=== PATIENT | female | born 1965 | race Caucasian/White ===

== ENCOUNTER 2018-01-21 08:39 | Outpatient (CLI) | payer OTHER, BC ==
--- NOTE | 2018-01-21 12:04 | Ultrasound Report ---
Procedure Date: 01/21/2018 Accession Number: [id number] / [id number] Procedure: US - Pelvic w/Transvaginal CPT Code: FULL RESULT: EXAM: Pelvic w/Transvaginal DATE: 01/21/2018 9:57 AM CLINICAL HISTORY: [place] COMPARISON: None. TECHNIQUE: Realtime transabdominal imaging performed to identify the uterus and adnexa and as an overview of other pelvic structures, followed by transvaginal imaging for better assessment of the endometrium and/or adnexa, with static image documentation. FINDINGS: Uterus: 8.0 x 4.1 x 3.5 cm, volume 115 cc. Anteverted position. Normal overall size and echotexture. Masses: There are 2 anterior leiomyoma is, subserosally measuring 1.1 x 0.7 x 0.5 cm, and one submucosally measuring 0.7 x 0.6 x 0.5 cm. Endometrium: 7 mm. There is an echogenic 1.2 x 0.8 x 0.4 cm nodule in the endometrial canal, likely representing a polyp. Cervix: Unremarkable. Right Ovary/Adnexa: 2.8 x 2.4 x 2.0 cm, volume 7 cc. Normal echotexture. Blood flow is present. A follicle is present. Left Ovary/Adnexa: 2.2 x 2.4 x 1.7 cm, volume 5 cc. Normal echotexture. Blood flow is present. A follicle is present. Free Fluid: Small amount the cul-de-sac. Other: None. IMPRESSION: Likely endometrial polyp, measuring 1.2 cm. Small leiomyomas. RADIA
== END 2018-01-21 08:40 | disposition home or self-care (01) ==
LOC: DI 08:39
PROVIDERS: ATTEND Physician Assistant Medical
DX: N92.1 Excessive and frequent menstruation with irregular cycle (principal); D25.0 Submucous leiomyoma of uterus; D25.2 Subserosal leiomyoma of uterus
CPT/HCPCS: 76830; 76856

== ENCOUNTER 2018-02-18 03:10 | Emergency (ER) | payer OTHER, BC ==
--- NOTE | 2018-02-18 03:20 | ED Physician Documentation ---
PD HPI HEAD INJURY - Stated complaint Stated Complaint: HEAD INJURY - History obtained from History obtained from: Patient - History of Present Illness Mechanism of head injury: Blow Where head injury occurred: Home Timing - onset: Enter time (02:40), Today Pain level now: 6 Location of injury: Left Quality of pain: Pain Associated symptoms: No: LOC (uncertain if LOC, but no loss of noticeable amount of time), AMS, Amnesia, Nausea / vomiting, Neck pain Contributing factors: No: Anticoagulated, Intoxicated Similar symptoms before: Has not had sx before Recently seen: Not recently seen - Additional information Additional information: Patient is unpacking in process of moving to [facility], she put a large amount of boxed coins on a table, causing the table to overturn. There was a large, heavy framed oil painting on the table which she estimates to have weighed about 35 pounds, and the frame of the painting struck her on the left side of her head and jaw. she complains of pain in these areas. Review of Systems Eyes: reports: Reviewed and negative Ears: reports: Reviewed and negative Neurologic: reports: Headache, Head injury. denies: Generalized weakness, Focal weakness, Numbness, Altered mental status, LOC PD PAST MEDICAL HISTORY - Past Medical History Past Medical History: No - Past Surgical History Past Surgical History: No - Present Medications Home Medications: Ambulatory Orders Medication Instructions Recorded Confirmed No Known Home Medications [No 08/19/15 02/18/18 Known Home Medications] - Allergies Allergies/Adverse Reactions: Allergies Allergy/AdvReac Type Severity Reaction Status Date / Time codeine AdvReac Nausea Verified 02/18/18 03:24 Morpholine Analogues AdvReac Nausea Verified 02/18/18 03:24 - Social History Does the pt smoke?: No Smoking Status: Never smoker Does the pt drink ETOH?: Yes Does the pt have substance abuse?: No - Immunizations Immunizations are current?: Yes - POLST Patient has POLST: No PD ED PE NORMAL - Vitals Vital signs reviewed: Yes - General General: Alert and oriented X 3, No acute distress, Well developed/nourished - HEENT HEENT: PERRL, EOMI - Neck Neck: No bony TTP - Cardiac Cardiac: RRR, No murmur - Respiratory Respiratory: No respiratory distress, Clear bilaterally - Neuro Neuro: Alert and oriented X 3, technical sales director 2-12 intact, No motor deficit, No sensory deficit, Normal speech Eye Opening: Spontaneous Motor: Obeys Commands Verbal: Oriented GCS Score: 15 PD ED PE EXPANDED - HEENT HEENT Visual: 1 - swelling, tenderness 2 - abrasion, swelling, tenderness Results - Vitals Vitals: Oxygen O2 Source Room air - Rads (name of study) CT head Radiology: Prelim report reviewed, See rad report CT facial bones Radiology: Prelim report reviewed, See rad report PD MEDICAL DECISION MAKING - ED course Complexity details: reviewed results, re-evaluated patient, considered differential, d/w patient - Sepsis Event Vital Signs: Oxygen O2 Source Room air Departure - Departure Disposition: 01 Home, Self Care Clinical Impression: Head injury Qualifiers: Encounter type: initial encounter Qualified Code(s): S09.90XA - Unspecified injury of head, initial encounter Condition: Good Instructions: ED Head Injury Closed Follow-Up: Tiffany Ortiz PA-C [Primary Care Provider] - Discharge Date/Time: 02/18/18 05:05
--- NOTE | 2018-02-18 04:20 | CT Report ---
Procedure Date: 02/18/2018 Accession Number: [id number] / [id number] Procedure: CT - Facial Bones W/O CPT Code: FULL RESULT: EXAM: CT MAXILLOFACIAL WITHOUT CONTRAST EXAM DATE: 02/18/2018 03:50 AM. CLINICAL HISTORY: Head injury, nausea, left FONTANA and jaw pain. COMPARISONS: None. TECHNIQUE: Thin-section axial images were acquired of the face without contrast. Post-processing: Coronal and sagittal reformats. Other: None. In accordance with CT protocol optimization, one or more of the following dose reduction techniques were utilized for this exam: automated exposure control, adjustment of mA and/or KV based on patient size, or use of iterative reconstructive technique. FINDINGS: Soft Tissue: The infratemporal fossa and parapharyngeal spaces are unremarkable. Orbits: Symmetric and unremarkable. Bones: No fracture or bone lesion. Temporomandibular Joints: The temporomandibular joints are symmetric and normally located. Sinuses: Normal. No mucosal thickening or fluid levels. IMPRESSION: No acute facial bone fracture. RADIA
--- NOTE | 2018-02-18 04:32 | CT Report ---
Procedure Date: 02/18/2018 Accession Number: [id number] / [id number] Procedure: CT - Head W/O CPT Code: FULL RESULT: EXAM: CT HEAD EXAM DATE: 02/18/2018 03:54 AM. CLINICAL HISTORY: Head injury, left FONTANA and jaw pain. COMPARISON: None. TECHNIQUE: Multiaxial CT images were obtained from the foramen magnum to the vertex. Reformats: Coronal. IV contrast: None. In accordance with CT protocol optimization, one or more of the following dose reduction techniques were utilized for this exam: automated exposure control, adjustment of mA and/or KV based on patient size, or use of iterative reconstructive technique. FINDINGS: Parenchyma: No intraparenchymal hemorrhage. No evidence of mass, midline shift, or CT findings of infarction. Nichols-white differentiation is distinct. Extraaxial Spaces: Normal for age. No subdural or epidural collections identified. Ventricles: Normal in size and position. Sinuses and Orbits: Imaged paranasal sinuses, orbits, and mastoids show no significant abnormality. Bones: No evidence of fracture or calvarial defect. IMPRESSION: Normal head CT. RADIA
[2018-02-18 05:06] VITALS: BP 108/75
== END 2018-02-18 05:05 | disposition home or self-care (01) ==
LOC: ED 03:10
DX: S09.90XA Unspecified injury of head, initial encounter (principal); W22.8XXA Striking against or struck by other objects, initial encounter; Y93.E6 Activity, residential relocation
CPT/HCPCS: 70450; 70486; 99283

== ENCOUNTER 2018-02-22 16:20 | Outpatient (CLI) | payer OTHER, BC ==
[2018-02-25 10:11] LABS: SOURCE BLOOD
== END 2018-02-22 16:21 | disposition home or self-care (01) ==
LOC: LAB 16:20
PROVIDERS: ATTEND Obstetrics & Gynecology
DX: Z80.41 Family history of malignant neoplasm of ovary (principal)
CPT/HCPCS: 36415; 81206

== ENCOUNTER 2018-03-16 12:26 | Outpatient (CLI) | payer OTHER, BC | END 2018-03-16 12:27 | disposition home or self-care (01) | LOC: LAB 12:26 | PROVIDERS: ATTEND Obstetrics & Gynecology | DX: Z80.41 Family history of malignant neoplasm of ovary (principal) | CPT/HCPCS: 81599 ==

== ENCOUNTER 2018-07-08 10:10 | Day surgery (SDC) | payer OTHER, BC ==
[2018-07-08 10:29] VITALS: BP 108/69
[2018-07-08] MEDS ORDERED: LACTATED RINGERS 1,000 ML IV ONE (10:33)
== END 2018-07-08 10:11 | disposition home or self-care (01) ==
LOC: SDS 10:10
PROVIDERS: ATTEND Internal Medicine Gastroenterology
DX: Z53.8 Procedure and treatment not carried out for other reasons (principal)

== ENCOUNTER 2020-05-22 18:39 | Outpatient (CLI) | payer BC | END 2020-05-22 18:40 | disposition home or self-care (01) | LOC: COV 18:39 | PROVIDERS: ATTEND Family Medicine | DX: R05 Cough (principal); M79.10 Myalgia, unspecified site; R53.83 Other fatigue; R68.83 Chills (without fever); R09.81 Nasal congestion; Z20.828 Contact with and (suspected) exposure to other viral communicable diseases ==

== ENCOUNTER 2020-11-15 21:37 | Emergency (ER) | payer BC ==
--- OUTSIDE RECORDS SUMMARY | 2020-11-15 22:07 | EXTERNAL MEDICAL SUMMARY RPT | Continuity of Care Document ---
:1965 Demographics Phone Unavailable Preferred Language Unknown Marital Status Unknown Mosque Affiliation Unknown Race Unknown Ethnic Group Unknown Author Organization [facility] Address [address] [place] [address] Phone Social History date description facility [id number]
[2020-11-15 22:39] VITALS: BP 123/80
--- NOTE | 2020-11-16 00:28 | ED Physician Documentation ---
History of Present Illness - Stated complaint Stated Complaint: GLF/RT ARM PX - Chief complaint Chief Complaint: Trauma Ext - History obtained from History obtained from: Patient - Additonal information Additional information: 55-year-old woman presents status post fall onto outstretched hand on the right side while gardening. Patient did not injure anything else and did not hit her head. She states she had sudden onset mild/moderate pain to the right arm, shoulder, and neck a/w jolting sensation that is now constant, worse with rom at the shoulder, radiating down the entire arm. She is able to move all of her extremities appropriately at this time. normal sensation and strength. Review of Systems Skin: denies: Rash, Lesions Musculoskeletal: reports: Extremity pain. denies: Joint pain, Extremity swelling Neurologic: denies: Focal weakness, Numbness PD PAST MEDICAL HISTORY - Past Medical History Past Medical History: Yes Cardiovascular: None Respiratory: None Endocrine/Autoimmune: None GI: None : None HEENT: None, Chronic vision loss Psych: None Musculoskeletal: Osteoarthritis, Chronic back pain Derm: None - Past Surgical History Past Surgical History: Yes General: Other - Present Medications Home Medications: Ambulatory Orders Medication Instructions Recorded Confirmed No Known Home Medications 08/19/15 11/15/20 - Allergies Allergies/Adverse Reactions: Allergies Allergy/AdvReac Type Severity Reaction Status Date / Time crab Allergy Rash Verified 11/15/20 22:39 strawberry Allergy Rash Verified 11/15/20 22:39 codeine AdvReac Nausea Verified 11/15/20 22:39 monosodium glutamate AdvReac Nausea Verified 11/15/20 22:39 morphine AdvReac Nausea Verified 11/15/20 22:39 soy AdvReac abdominal Verified 11/15/20 22:39 pain - Social History Does the pt smoke?: No Smoking Status: Never smoker Does the pt drink ETOH?: Yes Does the pt have substance abuse?: No - Immunizations Immunizations are current?: Yes - POLST Patient has POLST: No PD ED PE NORMAL - Vitals Vital signs reviewed: Yes - General General: Alert and oriented X 3, No acute distress, Well developed/nourished - HEENT HEENT: Atraumatic, PERRL, EOMI - Neck Neck: No bony TTP - Extremities Extremities: No deformity, Normal ROM s pain, Other (discomfort to palpation of R trapezius muscle of neck. discomfort to palpation along humerus, radius/ulna, wrist and hand. discomfort with rom of R shoulder) - Neuro Neuro: Alert and oriented X 3, No motor deficit, No sensory deficit - Psych Psych: Normal mood, Normal affect Results - Vitals Vitals: Vital Signs - 24 hr 11/15/20 22:35 Temperature 36.2 C L Heart Rate 84 Respiratory 18 Rate Blood Pressure 123/80 O2 Saturation 100 Oxygen O2 Source Room air PD MEDICAL DECISION MAKING - ED course ED course: 55-year-old woman presents status post fall onto outstretched hand without apparent injury on x-ray. Sling was provided and the patient will follow up with her primary doctor and with orthopedics as needed. Return precautions given. Departure - Departure Disposition: 01 Home, Self Care Clinical Impression: Muscle spasm, Fall from standing Condition: Good Instructions: ED RICE Follow-Up: Dontae Workman MD [Provider Admit Priv/Credential] - Comments: You were seen in the emergency department for pain in your arm after a fall. Your x-rays did not show any breaks in the bones, but you should follow-up with Dr. Workman in orthopedics clinic in 1 week if you do not have improvement. Return to the emergency department if you have any new or worsening symptoms or other concerns Discharge Date/Time: 11/16/20 00:38
--- NOTE | 2020-11-16 08:27 | XRAY Report ---
PROCEDURE: Forearm RT INDICATIONS: GLF; pain and swelling TECHNIQUE: 2 views of the forearm were acquired. COMPARISON: None FINDINGS: Bones: No fractures or dislocations. No suspicious bony lesions. Soft tissues: No suspicious soft tissue calcifications or masses. IMPRESSION: No fracture. No osseous lesion. If there are persistent symptoms or continued clinical concern for pa thology, then repeat plain film radiographs (7-10 days) or advanced imaging (CT, MR, bone scan) shoul d be considered for further evaluation. Reviewed by: Nathaly Chavez MD, PhD on 11/16/2020 8:26 AM PDT Approved by: Nathaly Chavez MD, PhD on 11/16/2020 8:26 AM PDT Station ID: [id number]
--- NOTE | 2020-11-16 08:28 | XRAY Report ---
PROCEDURE: Humerus RT INDICATIONS: Fall; swelling and pain TECHNIQUE: 2 views of the humerus were acquired. COMPARISON: None FINDINGS: Bones: No fractures or dislocations. No suspicious bony lesions. Soft tissues: No suspicious soft tissue calcifications. IMPRESSION: No fracture. No osseous lesion. If there are persistent symptoms or continued clinical concern for pa thology, then repeat plain film radiographs (7-10 days) or advanced imaging (CT, MR, bone scan) shoul d be considered for further evaluation. Reviewed by: Nathaly Chavez MD, PhD on 11/16/2020 8:26 AM PDT Approved by: Nathaly Chavez MD, PhD on 11/16/2020 8:26 AM PDT Station ID: [id number]
--- NOTE | 2020-11-16 08:28 | XRAY Report ---
PROCEDURE: Shoulder 2 View RT INDICATIONS: fall, pain TECHNIQUE: 2 views of the shoulder were acquired. COMPARISON: None. FINDINGS: Bones: No fractures or dislocations. No suspicious bony lesions. Visualized ribs appear intact. Soft tissues: No suspicious soft tissue calcifications. IMPRESSION: No fracture. No osseous lesion. If there are persistent symptoms or continued clinical concern for pa thology, then repeat plain film radiographs (7-10 days) or advanced imaging (CT, MR, bone scan) shoul d be considered for further evaluation. Reviewed by: Nathaly Chavez MD, PhD on 11/16/2020 8:27 AM PDT Approved by: Nathaly Chavez MD, PhD on 11/16/2020 8:27 AM PDT Station ID: [id number]
--- NOTE | 2020-11-16 08:29 | XRAY Report ---
PROCEDURE: Wrist 2 View RT INDICATIONS: fall, pain TECHNIQUE: 2 views of the wrist were acquired. COMPARISON: None FINDINGS: Bones: No fractures or dislocations. No suspicious bony lesions. Soft tissues: No suspicious soft tissue calcifications. IMPRESSION: No fracture. No osseous lesion. If there are persistent symptoms or continued clinical concern for pa thology, then repeat plain film radiographs (7-10 days) or advanced imaging (CT, MR, bone scan) shoul d be considered for further evaluation. Reviewed by: Nathaly Chavez MD, PhD on 11/16/2020 8:27 AM PDT Approved by: Nathaly Chavez MD, PhD on 11/16/2020 8:27 AM PDT Station ID: [id number]
== END 2020-11-16 00:38 | disposition home or self-care (01) ==
LOC: ED 21:37
DX: M62.838 Other muscle spasm (principal); M79.641 Pain in right hand; M25.511 Pain in right shoulder; M54.2 Cervicalgia; W01.0XXA Fall on same level from slipping, tripping and stumbling without subsequent striking against object, initial encounter; Y93.H2 Activity, gardening and landscaping
CPT/HCPCS: 99282

== ENCOUNTER 2022-01-15 13:11 | Outpatient (CLI) | payer BC ==
--- NOTE | 2022-01-21 07:38 | Mammography Report ---
BILATERAL DIGITAL SCREENING MAMMOGRAM 3D/2D: 01/15/2022 Comparison is made to exams dated: 02/06/2016 ultrasound, 02/06/2016 mammogram, 11/19/2012 mammogram - [facility], 12/21/2014 mammogram, and 12/21/2014 ultrasound - [facility]. There are scattered fibroglandular elements in both breasts. No significant masses, calcifications, or other findings are seen in either breast. There has been no significant interval change. IMPRESSION: NEGATIVE There is no mammographic evidence of malignancy. A 1 year screening mammogram is recommended. Based on the Tyrer Cuzick model (a risk assessment model) the patients lifetime risk is 9.7% and her 10 year risk is 3.0%. According to the ACR, ACS, and NCCN guidelines, an annual breast MRI exam nidia g with mammogram is recommended if the patients lifetime risk is 20% or greater. This exam was interpreted at Station ID: [id number]. NOTE: For mammograms, a report in lay terms will be sent to the patient. Approximately 15% of breast malignancies will not be visualized mammographically. In the management of a palpable breast mass, a negative mammogram must not discourage biopsy of a clinically suspicious lesion. Electronically Signed By: Darek Reynolds M.D. aty/:01/15/2022 16:58:00 ACR BI-RADS Category 1: Negative 3341F PARENCHYMAL PATTERN: (A) - The breast(s) demonstrate(s) scattered fibroglandular densities. BI-RADS CATEGORY: (1) - 1 RECOMMENDATION: (ANNUAL) - Recommend routine annual screening mammography. [id number] 1 year screening LATERALITY: (B)
== END 2022-01-15 13:12 | disposition home or self-care (01) ==
LOC: DI.N 13:11 → MERGE 13:15
DX: Z12.31 Encounter for screening mammogram for malignant neoplasm of breast (principal)

== ENCOUNTER 2022-05-16 06:16 | Day surgery (SDC) | payer BC ==
[2022-05-16] MEDS ORDERED: LACTATED RINGERS 1,000 ML IV ONE (06:45)
--- NOTE | 2022-05-16 07:05 | ANESTHESIA ---
Pre-Anesthesia VS, & Labs - Diagnosis screening exam - Procedure colonoscopy Vital Signs: Temp Pulse Resp BP Pulse Ox O2 Flow Rate 36.6 C 80 14 107/75 98 05/16/22 06:37 05/16/22 06:37 05/16/22 06:37 05/16/22 06:37 05/16/22 06:37 Height: 5 ft 2 in Weight (kg): 71.2 kg Body Mass Index: 28.7 BMI Classification: Overweight - NPO >8 hours - Is Patient ?: No Home Medications and Allergies Home Medications: Ambulatory Orders Multivitamin 1 each PO DAILY 05/16/22 Multivitamin 1 each PO DAILY 05/16/22 Allergies/Adverse Reactions: Allergies Allergy/AdvReac Type Severity Reaction Status Date / Time crab Allergy Rash Verified 01/15/22 11:57 strawberry Allergy Rash Verified 01/15/22 11:57 codeine AdvReac Nausea Verified 01/15/22 11:57 monosodium glutamate AdvReac Nausea Verified 01/15/22 11:57 morphine AdvReac Nausea Verified 01/15/22 11:57 soy AdvReac abdominal Verified 01/15/22 11:57 pain Anes History & Medical History - Anesthetic History Anesthesia Complications: reports: No previous complications - Medical History Cardiovascular: reports: None Pulmonary: reports: None Gastrointestinal: reports: GERD (infrequent) Urinary: reports: None Neuro: reports: None Musculoskeletal: reports: Osteoarthritis, Chronic back pain Endocrine/Autoimmune: reports: None Blood Disorders: reports: None Skin: reports: None Smoking Status: Never smoker Psychosocial: reports: Alcohol (wine 1 glass per day) History of Cancer?: Yes (s/p chemo for teratoma) - Surgical History General: reports: Other Exam General: Alert, Oriented x3, Cooperative, No acute distress Dental: WNL Mouth Openin Fingerbreadth Neck Mobility: Normal Mallampati classification: I Thyromental Distance: 4-6 cm Mental/Cognitive Status: Alert/Oriented X3, Normal for patient Plan Anesthesia Type: General Consent for Procedure(s) Verified and Reviewed: Yes Code Status: Attempt Resuscitation ASA classification: 2-Mild systemic disease Is this case an emergency?: No
[2022-05-16] MEDS ORDERED: PROPOFOL 500 MG/50 ML 500 MG/50 ML VIAL ONE (07:12)
--- NOTE | 2022-05-16 07:28 | HISTORY & PHYSICAL EXAMINATION ---
Chief Complaint - Chief Complaint Chief Complaint: here for colon cancer screening History of Present Illness - History Obtained From Records Reviewed: yes History obtained from: pt Exam Limitations: none - History of Present Illness HPI Comment/Other: here for colon cancer screening. no gi problems History - Past Medical History Cardiovascular: reports: None Respiratory: reports: None Neuro: reports: None Endocrine/Autoimmune: reports: None GI: reports: GERD (infrequent) : reports: None HEENT: reports: Chronic vision loss, None Psych: reports: None Musculoskeletal: reports: Osteoarthritis, Chronic back pain Derm: reports: None MRSA Hx?: No - Past Surgical History General: reports: Other - POLST Patient has POLST: No Meds/Allgy - Home Medications Home Medications: Ambulatory Orders Medication Instructions Recorded Confirmed Multivitamin 1 each PO DAILY 05/16/22 05/16/22 - Allergies Allergies/Adverse Reactions: Allergies Allergy/AdvReac Type Severity Reaction Status Date / Time crab Allergy Rash Verified 01/15/22 11:57 strawberry Allergy Rash Verified 01/15/22 11:57 codeine AdvReac Nausea Verified 01/15/22 11:57 monosodium glutamate AdvReac Nausea Verified 01/15/22 11:57 morphine AdvReac Nausea Verified 01/15/22 11:57 soy AdvReac abdominal Verified 01/15/22 11:57 pain Review of Systems - Other Findings Other Findings: 10 pt ros as above otherwise unremarkable Exam - Vital Signs Reviewed Vital Signs: Yes Vital Signs: Vital Signs x48h Temp Pulse Resp BP Pulse Ox 05/16/22 06:37 36.6 C 80 14 107/75 98 - Physical Exam General Appearance: positive: No acute distress, Alert Eyes Bilateral: positive: PERRL, EOMI ENT: positive: No signs of dehydration Neck: positive: No JVD, Trachea midline Respiratory: positive: No respiratory distress, Breath sounds nml Cardiovascular: positive: Regular rate & rhythm Abdomen: positive: Non-tender, No distention Neurologic/Psychiatric: positive: Oriented x3 Conclusion/Plan - Problem List (1) Colon cancer screening Conclusion/Plan: plan colonoscopy. parq held and consent obtained
[2022-05-16] MEDS ORDERED: LACTATED RINGERS 500 ML IV ONE (08:13)
[2022-05-16 08:40] VITALS: BP 118/87
--- NOTE | 2022-05-16 08:58 | ANESTHESIA POST OP EVALUATION ---
Anesthesia Post Eval - Post Anesthesia Eval Vitals: Last Vital Signs Temp 36.6 C 05/16/22 08:35 Pulse 79 05/16/22 08:35 Resp 16 05/16/22 08:35 BP 118/87 H 05/16/22 08:35 Pulse Ox 99 05/16/22 08:35 O2 Flow Rate CV Function Including HR & BP: Stable Pain Control: Satisfactory Nausea & Vomiting: Negative Mental Status: Baseline Respiratory Status: Airway Patent Hydration Status: Satisfactory Anesthesia Complications: None
== END 2022-05-16 06:17 | disposition home or self-care (01) ==
LOC: SDS 06:16
PROVIDERS: ATTEND Surgery
PROC: 0DBK8ZZ Excision of Ascending Colon, Via Natural or Artificial Opening Endoscopic (ICD-10-PCS; principal; 2022-05-16 07:30)
DX: Z12.11 Encounter for screening for malignant neoplasm of colon (principal)
CPT/HCPCS: 45380; J7120

== ENCOUNTER 2023-09-12 17:17 | Outpatient (CLI) | payer BC ==
--- NOTE | 2023-09-13 13:40 | XRAY Report ---
PROCEDURE: Wrist 3+V RT INDICATIONS: OTHER SPECIFIED SPRAIN OF RIGHT WRIST TECHNIQUE: 3 views of the wrist were acquired. COMPARISON: None. FINDINGS: Bones: Query possible cortical irregularity and increased sclerosis at the mid pole of the scaphoid. No suspicious bony lesions. Soft tissues: No suspicious soft tissue calcifications or masses. IMPRESSION: Query nondisplaced scaphoid fracture. Recommend correlation with point tenderness. Consider repeat r adiographs in 7-10 days if pain persists. Reviewed by: Kalyn Lanier MD on 09/13/2023 1:39 PM PST Approved by: Kalyn Lanier MD on 09/13/2023 1:39 PM PST Station ID: [id number]
== END 2023-09-12 17:18 | disposition home or self-care (01) ==
LOC: DI 17:17
PROVIDERS: ATTEND Family Medicine
DX: S63.591A Other specified sprain of right wrist, initial encounter (principal)

== ENCOUNTER 2023-09-18 15:15 | Outpatient (CLI) | payer BC ==
--- NOTE | 2023-09-18 16:24 | XRAY Report ---
PROCEDURE: Wrist 3+V RT INDICATIONS: NONDISPLACED FX OF MIDDLE THIRD OF NAVICULAR BONE RT WRIST TECHNIQUE: 3 views of the wrist were acquired. COMPARISON: Right wrist radiographs 09/12/2023 and 11/15/2020. FINDINGS: Bones: No definite lucent fracture line or healing changes are seen in the scaphoid. No suspicious b ghulam lesions. Small ossification adjacent to the ulnar styloid tip is likely the sequela of a remote prior injury. Soft tissues: No suspicious soft tissue calcifications. IMPRESSION: 1.No definite acute or healing scaphoid fracture is seen. 2.Small ossification adjacent to the ulnar styloid tip is likely the sequela of a remote prior injury . Reviewed by: Zaid Morley MD on 09/18/2023 4:22 PM PST Approved by: Zaid Morley MD on 09/18/2023 4:22 PM PST Station ID: [id number]
== END 2023-09-18 15:30 | disposition home or self-care (01) ==
LOC: DI.N 15:15
PROVIDERS: ATTEND Family Medicine
DX: S62.024D Nondisplaced fracture of middle third of navicular [scaphoid] bone of right wrist, subsequent encounter for fracture with routine healing (principal)